=== PATIENT | female | born 1950 | race Caucasian/White ===

== ENCOUNTER 2022-07-23 13:49 | Day surgery (SDC) | payer MEDICARE, OTHER ==
[~2022-07-23] VITALS: Ht 170.2 cm; Wt 79.1 kg
[2022-07-23] VITALS (7 sets, daily range): BP systolic 124–149; BP diastolic 66–93
[2022-07-23] MEDS ORDERED: LORazepam 0.5 MG tablet PO PRN (14:15)
[2022-07-23] MEDS ORDERED: normal saline 1,000 ML IV SCH (14:15)
[2022-07-23] MEDS ORDERED: diphenhydrAMINE 25mg capsule PO PRN (14:15)
[2022-07-23 15:13] LABS: BASOPHILS # (AUTO) 0.1 X10'3 (0-0.2); BASOPHILS % (AUTO) 0.9 % (0-1); EOSINOPHILS # (AUTO) 0.2 X10'3 (0-0.9); EOSINOPHILS % (AUTO) 2.3 % (0-6); HEMATOCRIT 50.7 % (35.0-45.0); HEMOGLOBIN 16.7 g/dl (12.0-16.0); LYMPHOCYTES # (AUTO) 2.3 X10'3 (1.1-4.8); LYMPHOCYTES % (AUTO) 27.8 % (21-51); MEAN CORPUSCULAR HEMOGLOBIN 28.4 PG (27.0-31.0); MEAN CORPUSCULAR HGB CONC 32.9 g/dL (33.0-36.5); MEAN CORPUSCULAR VOLUME 86.4 FL (78-98); MEAN PLATELET VOLUME 7.9 FL (7.4-10.4); MONOCYTES # (AUTO) 0.6 X10'3 (0-0.9); MONOCYTES % (AUTO) 6.6 % (2-12); NEUTROPHILS # (AUTO) 5.3 X10'3 (1.8-7.7); NEUTROPHILS % (AUTO) 62.4 % (42-75); PLATELET COUNT 174 X10'3 (140-440); RED BLOOD COUNT 5.87 X10'6 (4.20-5.60); RED CELL DISTRIBUTION WIDTH 15.8 % (11.5-14.5); WHITE BLOOD COUNT 8.4 X10'3 (4.5-11.0)
[2022-07-23] MEDS ORDERED: ISOS30TA84 PO (15:20)
[2022-07-23] MEDS ORDERED: FLUO60TA PO (15:20)
[2022-07-23] MEDS ORDERED: ASPI81TA52 PO (15:20)
[2022-07-23] MEDS ORDERED: SPIR25TA5 PO (15:20)
[2022-07-23] MEDS ORDERED: CARV6.253 PO (15:20)
[2022-07-23] MEDS ORDERED: ATOR40TA72 PO (15:20)
[2022-07-23] MEDS ORDERED: SACU1TAB7 PO (15:20)
[2022-07-23] MEDS ORDERED: EMPA10TA PO (15:20)
[2022-07-23] MEDS ORDERED: CLOP75TA34 PO (15:20)
[2022-07-23] MEDS ORDERED: AMIT10TA6 PO (15:20)
[2022-07-23] MEDS ORDERED: ALB0.5UD (15:22)
[2022-07-23 15:25] LABS: APTT 29 SECONDS (22-32)
[2022-07-23 15:29] LABS: ALBUMIN 3.2 G/DL (3.4-5.0); ANION GAP 8 (8-16); BLOOD UREA NITROGEN 24 MG/DL (7-18); BUN/CREATININE RATIO 20.3 (6.6-38.0); CALCIUM 8.2 MG/DL (8.5-10.1); CHLORIDE 104 MMOL/L (99-107); CREATININE 1.18 MG/DL (0.40-0.90); GLUCOSE 86 MG/DL (70-104); POTASSIUM 4.8 MMOL/L (3.5-5.1); SODIUM 136 MMOL/L (135-145); eGFR 45 ML/MIN
[2022-07-23] MEDS ORDERED: iohexol 350MG/ML 100ml bottle IV ONE (16:21)
[2022-07-23] MEDS ORDERED: midazolam 1 mg/ML 2ml injection ONE (16:21)
[2022-07-23] MEDS ORDERED: FENTANYL CITRATE/PF 50 MCG/1 ML VIAL ONE (16:21)
[2022-07-23] MEDS ORDERED: LIDOcaine 1% 30ml preserv. free vial ONE (16:21)
--- NOTE | 2022-07-23 18:32 | NUR ---
Bedside report received from LACY Jaquez. Vital signs stable. NSR on line driver. Right AC venous stable with dressing in place. Will continue to monitor.
[2022-07-23] MEDS ORDERED: HYDROcodone/acetaminophen 5mg/325mg tablet PO PRN (19:05)
[2022-07-23] MEDS ORDERED: HYDROcodone/acetaminophen 10/325mg tab PO PRN (19:05)
== END 2022-07-23 20:00 | disposition home or self-care (01) ==
LOC: SSTAY O 13:49
PROVIDERS: ATTEND Student in an Organized Health Care Education/Training Program
DX: I27.20 Pulmonary hypertension, unspecified (principal); J44.9 Chronic obstructive pulmonary disease, unspecified; I25.10 Atherosclerotic heart disease of native coronary artery without angina pectoris; E78.5 Hyperlipidemia, unspecified; I10 Essential (primary) hypertension; I25.2 Old myocardial infarction; Z79.899 Other long term (current) drug therapy; Z86.718 Personal history of other venous thrombosis and embolism; Z88.8 Allergy status to other drugs, medicaments and biological substances; Z79.01 Long term (current) use of anticoagulants
CPT/HCPCS: 36415; 80048; 85025; 85610; 85730; 93005; 93451; C1769; C1894; J1644; J2250; J3010; J3490; J7030; Q0163; Q9967; 99152; C1751

== ENCOUNTER 2024-02-10 13:53 | Outpatient (CLI) | payer MEDICARE, OTHER ==
[~2024-02-10 13:53] MED LIST: ALB0.5UD; AMIT10TA6 PO; ASPI81TA52 PO; ATOR40TA72 PO; CARV6.253 PO; CLOP75TA34 PO; EMPA10TA PO; FLUO60TA PO; ISOS30TA84 PO; SACU1TAB7 PO; SPIR25TA5 PO
[2024-02-10] MEDS ORDERED: iohexol 350MG/ML 100ml bottle IV ONE (14:13)
== END 2024-02-10 23:59 | disposition home or self-care (01) ==
LOC: RAD 13:53
PROVIDERS: ATTEND Student in an Organized Health Care Education/Training Program
DX: I71.40 Abdominal aortic aneurysm, without rupture, unspecified (principal); I50.22 Chronic systolic (congestive) heart failure; F17.290 Nicotine dependence, other tobacco product, uncomplicated; J84.10 Pulmonary fibrosis, unspecified; R91.8 Other nonspecific abnormal finding of lung field
CPT/HCPCS: 71275; Q9967